=== PATIENT | male | born 1925 | race Caucasian/White ===

== ENCOUNTER 2016-11-03 22:10 | Emergency (ER) | payer MEDICARE ==
[2016-11-03 23:04] VITALS: BP 116/62
--- NOTE | 2016-11-04 06:37 | ED ---
Donell Escalante SooYoung, scribed for Fred Dickens MD on 11/03/16 at 2326 . 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 Pt says he accidentally pulled it out. It had been in place for about 3-4 months. Rates pain as 0/10. states the type of g tube is not usually in stock. - History of Current Complaint Chief Complaint: EDAbdPain Time Seen by Provider: 11/03/16 23:17 Stated Complaint: PULLED TUBE OUT OF ABD Hx Obtained From: Patient, Family/Workers Compensation Legal Secretary - Onset/Duration: Started Hours Ago, Still Present Timing: Constant Pain Intensity: 0 - out of 10 - Allergy/Home Medications Allergies/Adverse Reactions: Allergies Allergy/AdvReac Type Severity Reaction Status Date / Time Codeine Allergy Unknown Verified 11/03/16 23:32 Reaction Details Tetanus Toxoid Allergy Unknown Verified 11/03/16 23:32 Reaction Details Home Medications: Home Medications Fludrocortisone Acetate TAB* 0.1 mg PEG TUBE DAILY 11/03/16 [History Confirmed 11/03/16] PMH/Surg Hx/FS Hx/Imm Hx Previously Healthy: No Endocrine/Hematology History: Reports: Hx Anticoagulant Therapy Denies: Hx Diabetes Cardiovascular History: Reports: Hx Hypertension, Other Cardiovascular Problems/ Disorders - implantable monitor to left chest Respiratory History: Reports: Other Respiratory Problems/Disorders - SOB with exertion GI History: Reports: Hx Gastroesophageal Reflux Disease, Hx Obstructive Bowel, Other GI Disorders - Som's esophagus History: Reports: Hx Benign Prostatic Hyperplasia - enlarged prostate, Other Problems/Disorders - Prostate issues/ slow stream, retention Denies: Hx Renal Disease Sensory History: Reports: Hx Contacts or Glasses, Hx Macular Degeneration - right eye Opthamlomology History: Reports: Hx Contacts or Glasses, Hx Macular Degeneration - right eye - Surgical History Surgery Procedure, Year, and Place: IMPLANTED ELECTRO TECH; THYROIDECTOMY Hx Anesthesia Reactions: No Infectious Disease History: No Infectious Disease History: Denies: Traveled Outside the US in Last 30 Days - Family History Known Family History: Positive: Cardiac Disease, Hypertension, Diabetes - Social History Occupation: Retired Lives: With Family Alcohol Use: None Hx Substance Use: No Substance Use Type: Reports: None Hx Tobacco Use: Yes Smoking Status (MU): Former Smoker Review of Systems Negative: Fever Negative: Cough All Other Systems Reviewed And Are Negative: Yes Physical Exam Triage Information Reviewed: Yes Vital Signs On Initial Exam: Initial Vitals Temp Pulse Resp BP Pulse Ox 97.3 F 92 18 116/60 97 11/03/16 22:11 11/03/16 22:11 11/03/16 22:11 11/03/16 22:11 11/03/16 22:11 Vital Signs Reviewed: Yes Appearance: Positive: Well-Appearing, No Pain Distress Skin: Positive: Warm Head/Face: Positive: Normal Head/Face Inspection Eyes: Positive: IDA ENT: Positive: Hearing grossly normal Neck: Positive: Supple Respiratory/Lung Sounds: Positive: Clear to Auscultation, Breath Sounds Present Cardiovascular: Positive: RRR Abdomen Description: Positive: Soft, Other: - well formed feeding tube site Bowel Sounds: Positive: Present Musculoskeletal: Positive: Strength/ROM Intact - Bk Coma Scale Coma Scale Total: 15 Procedures - Procedure Summary Procedure Summary: feeding tube replaced with #16 fr feeding tube without complication. Placement confirmed by gastrograffinn xray Diagnostics - Vital Signs Vital Signs Temp Pulse Resp BP Pulse Ox 11/03/16 23:01 97.3 F 92 18 116/62 97 11/03/16 22:11 97.3 F 92 18 116/60 97 - Laboratory Lab Statement: Any lab studies that have been ordered have been reviewed, and results considered in the medical decision making process. - Radiology Catheter Patentcy Xray Interpretation: No Acute Changes Radiology Interpretation Completed By: ED Physician GIGU Course/Dx - Diagnoses Provider Diagnoses: g-tube replacement Discharge - Discharge Plan Condition: Improved Disposition: HOME Patient Education Materials: How to Use and Care for Your PEG Tube (ED) Referrals: Priya Aviles MD [Primary Care Provider] - The documentation as recorded by the Donell palacios SooYoung accurately reflects the service I personally performed and the decisions made by me, Fred Dickens MD.
--- NOTE | 2016-11-04 07:45 | RAD ---
Edited for charges. HISTORY: G-tube replacement COMPARISONS: CT dated September 11, 2016 VIEWS: Single supine view of the abdomen performed after administration of water -soluble contrast through a gastrostomy tube FINDINGS: A gastrostomy tube is noted. Contrast is noted within the lumen of the stomach. There is no appreciable extravasation. There is a nonspecific bowel gas pattern. IMPRESSION: CONTRAST IS NOTED WITH THE LUMEN OF THE STOMACH WITHOUT APPRECIABLE EXTRAVASATION. MTDD
--- NOTE | 2016-11-04 07:46 | RAD ---
HISTORY: Fall, right elbow pain COMPARISONS: None VIEWS: 5, Frontal, lateral, and oblique views of the right elbow FINDINGS: BONE DENSITY: Normal. BONES: There is no displaced fracture. JOINTS: There is no arthropathy. There is a small supracondylar fat pad suggestive of a small joint effusion. ALIGNMENT: There is no dislocation. SOFT TISSUES: Unremarkable. OTHER FINDINGS: None. IMPRESSION: NO ACUTE OSSEOUS INJURY. THERE IS A SMALL JOINT EFFUSION WHICH MAY INDICATE THE PRESENCE OF OCCULT FRACTURE GIVEN THE HISTORY OF TRAUMA..
== END 2016-11-04 01:04 | disposition home or self-care (01) ==
LOC: ED 22:10
DX: Z43.1 Encounter for attention to gastrostomy (principal); I10 Essential (primary) hypertension; K21.9 Gastro-esophageal reflux disease without esophagitis; N40.0 Benign prostatic hyperplasia without lower urinary tract symptoms; E89.0 Postprocedural hypothyroidism; Z95.818 Presence of other cardiac implants and grafts; Z79.01 Long term (current) use of anticoagulants; Z88.5 Allergy status to narcotic agent; Z88.7 Allergy status to serum and vaccine; Z87.891 Personal history of nicotine dependence
CPT/HCPCS: 36598; 49465; 99282

== ENCOUNTER 2016-11-05 16:50 | Emergency (ER) | payer MEDICARE ==
[2016-11-05 17:00] VITALS: BP 123/78
== END 2016-11-05 17:56 | disposition left against medical advice (07) ==
LOC: ED 16:50
DX: Z93.1 Gastrostomy status (principal); Z53.21 Procedure and treatment not carried out due to patient leaving prior to being seen by health care provider

== ENCOUNTER 2017-01-13 15:32 | Inpatient (IN) | payer MEDICARE ==
[2017-01-13 17:06] LABS: Hematocrit 39 % (42-52); Hemoglobin 13.1 g/dl (14.0-18.0); Mean Corpuscular HGB Conc 33 g/dl (31-36); Mean Corpuscular Hemoglobin 32 pg (27-31); Mean Corpuscular Volume 96 fL (80-94); Mean Platelet Volume 11 um3 (7.4-10.4); Red Blood Count 4.11 10^6/ul (4.0-5.4); Red Cell Distribution Width 14 % (10.5-15); White Blood Count 7.4 10^3/ul (3.5-10.8)
[2017-01-13 17:23] LABS: Albumin 3.4 g/dL (3.2-5.2); Calcium 8.9 mg/dL (8.6-10.3); EGFR African American 117.1 (>60); Globulin 2.9 g/dL (2-4); Potassium 4.4 mmol/L (3.5-5.0); Total Bilirubin 0.6 mg/dL (0.2-1.0); Total Protein 6.3 g/dL (6.4-8.9)
[2017-01-13 18:12] LABS: TSH (Thyroid Stimulating Horm) 1.28 mcIU/mL (0.34-5.60)
[2017-01-13] MEDS ORDERED: Diltiazem IV* 5 MG/ML 5 ML VIAL (for loading dose/IV Push) (25 MG) IV SLOW PU ONE (19:03)
[2017-01-13] MEDS ORDERED: Ondansetron INJ* 2 MG/ML VIAL IV PRN (19:03)
[2017-01-13] MEDS ORDERED: Acetaminophen TAB* 325 MG PO PRN (19:03)
[2017-01-13 19:09] LABS: Urine Bilirubin Negative (Negative); Urine Glucose Negative (Negative); Urine Nitrite Negative (Negative)
[2017-01-13] MEDS ORDERED: NS 0.9% 1000 ML* 1,000 ML IV SCH (19:15)
[2017-01-13] MEDS: Diltiazem TAB* 30 MG PEG TUBE SCH (19:32)
--- NOTE | 2017-01-13 19:59 | RAD ---
INDICATION: Vomiting. Atrial fibrillation. COMPARISON: September 04, 2015 TECHNIQUE: An AP portable view obtained at 1954 hours is submitted. FINDINGS: Bones/Soft Tissues: There are no acute bony findings. There is a cardiac event monitor. Cardiomediastinal: The cardiomediastinal silhouette is normal. Lungs: There are no infiltrates. Pleura: There are no pleural effusions. Other: None IMPRESSION: NO ACTIVE DISEASE.
[2017-01-13] MEDS ORDERED: Warfarin TAB(*) 5 MG PEG TUBE SCH ×2 (20:00→20:30)
--- NOTE | 2017-01-13 20:12 | RAD ---
INDICATION: Syncope COMPARISON: November 27, 2009 TECHNIQUE: Noncontrast axial source images were acquired from the skull base to the vertex. FINDINGS: Ventricles/sulci: There is advanced cortical atrophy with compensatory dilatation of the CSF spaces. Brain parenchyma: There is periventricular and subcortical white matter change compatible with chronic ischemia. Intracranial hemorrhage:None. Extra-axial spaces: There are no abnormal extra axial fluid collections or evidence of extra-axial mass. Calvarium: There is no calvarial fracture or other calvarial abnormality. Scalp: There is no evidence of scalp or extracalvarial soft tissue abnormality. Paranasal sinuses/mastoid: There is no fluid level in left maxillary antrum. There is mild bilateral ethmoid sinus mucosal thickening. The frontal air cells are hypoplastic. Other: None. IMPRESSION: Age-related atrophy with chronic microvascular ischemic change. Findings of acute and chronic sinusitis
[2017-01-13] MEDS: Dronedarone TAB* 400 MG PEG TUBE SCH (21:25)
--- NOTE | 2017-01-13 21:52 | HP ---
CC: Dr. Aviles; Dr. Bangura; Dr. Parra * HISTORY AND PHYSICAL: DATE OF ADMISSION: 01/13/17 PRIMARY CARE PROVIDER: Dr. Aviles. PRIMARY ADVANCE AGENT: Dr. Bangura in [place] and Dr. Parra. ATTENDING PHYSICIAN: Dr. Cruz * (DICTATED BY MONTSE EAST NP) CHIEF COMPLAINT: Presyncope. HISTORY OF PRESENT ILLNESS: Mr. Choudhury is an 89-year-old male patient, he has a history of hypertension, hyperlipidemia, GERD, BPH, hypothyroidism, paroxysmal atrial fibrillation, SVT, history of orthostasis, and also in addition to the aortic stenosis. He comes into the ER today stating that he was out golfing today. He was shooting and practicing, hitting some golf balls, he hit about 50. After that, he was walking back to the club house. He started feeling lightheaded, dizzy, felt like he was going to faint. He was able to lay down. His staff noted that he went down and he did not fall, he lowered himself on the ground. When they noticed that he was on the ground, so they came to check him and they turned him to a side because he started to vomit, he said that he did not choke after vomiting. He states that he did not have any chest pain or any shortness of breath. He said that he had been feeling well in the last few days, no chest pain, no palpitations, no feelings of shortness of breath or orthopnea. Nonetheless, there was concern because of the episode that had happened today and he was brought into the hospital for further evaluation. PAST MEDICAL HISTORY: Significant for: 1. Hypertension. 2. Hyperlipidemia. 3. GERD. 4. BPH. 5. Hypothyroid. 6. Paralysis of the vocal cords. 7. Aortic stenosis. 8. Paroxysmal AFib. 9. SVT. 10. Orthostasis. PAST SURGICAL HISTORY: He has had a history of an inguinal hernia repair, thyroidectomy. He has had a G-tube placement secondary to recurrent aspiration. HOME MEDICATIONS: According to the list that we obtained include: 1. Warfarin 5 mg by PEG tube Friday, Friday, Friday, Friday, , Friday. 2. Warfarin 2.5 mg PEG tube on Friday. 3. MiraLAX 17 g every 72 hours. 4. Synthroid 200 mcg Friday, Friday, Friday, Friday, , Friday. 5. Synthroid 100 mcg PEG tube Friday. 6. Proscar 5 mg PEG tube daily. 7. Lipitor 10 mg PEG tube daily. 8. Florinef 0.1 mg PEG tube daily. 9. Multaq 400 mg PEG tube b.i.d. 10. Nexium 20 mg PEG tube b.i.d. ALLERGIES TO MEDICATIONS: Include CODEINE and TETANUS. FAMILY HISTORY: Mother lived to the age of 89, of old age, according to him. Father had a history of [place]. SOCIAL HISTORY: Former smoker, quit 50 years ago. He does not drink alcohol. Surrogate decision maker is his daughter. ALLERGIES TO MEDICATIONS: Include CODEINE and TETANUS. REVIEW OF SYSTEMS: There is no documented fever. He denied having any significant weight change. There was no double vision. He denies having any ear discharge. There is no rhinorrhea, no sore throat, no thyroid enlargement. Denies having any chest pain. There is no orthopnea. No nocturnal dyspnea. There was no abdominal pain. There was one episode of nausea and vomiting. No dysuria, no frequency, no seizure. There was a presyncopal, but no syncope. No dysuria. Review of 14 systems completed, all others negative. PHYSICAL EXAMINATION GENERAL: At this time, Mr. Choudhury is an 89-year-old male patient. He is sitting in the ER stretcher. He does not appear to be in any acute distress. VITAL SIGNS: Blood pressure 113/67, pulse 112, respirations 18, O2 sat 97%, and temperature 98.6. HEENT: Head is atraumatic, normocephalic. Eyes: EOMs intact. Sclerae anicteric and not pale. Throat: Oral mucosa appears to be moist. No oropharyngeal erythema. NECK: Supple. LUNGS: Clear to auscultation bilaterally. No wheezing was heard. HEART: Sounds S1 and S2. Irregularly irregular rate and rhythm. No rubs or gallops. He did have grade 2 to 3 aortic murmur. ABDOMEN: Soft, flat, nontender. He had a G-tube that appeared to be no erythema surrounding it, no drainage was noted. EXTREMITIES: Pulses were 2+ throughout. He had 5/5 strength. NEUROLOGICAL: He is awake, alert, and oriented x3. No gross focal deficits. SKIN: Intact. DIAGNOSTIC STUDIES/LAB DATA: Revealed WBC of 7.4, RBC of 4.11, hemoglobin of 13.1, hematocrit of 39, platelet count 113. Sodium 137, potassium 4.4, chloride of 103, bicarb 31, BUN 28, creatinine of 0.80, glucose 120, lactic 1.5 , calcium 8.9, mag 2.0. Total bili 0.6, AST 60, ALT 65, alk phos 171. Troponin 0.0. His albumin was 3.4. TSH 1.28, urine was obtained, negative. He had an EKG today, appears to be atrial fibrillation under my review and again , there is a lot of artifact here, he does have irregular beats here and there and I do not appreciate any T-waves. Reviewed to the previous EKG, this is a new rhythm for him. Old medical records are reviewed. ASSESSMENT AND PLAN: Mr. Choudhury is an 89-year-old male patient coming into the ER today with complaints of presyncopal episode. On evaluation in the ED, it was noted that he appeared to have tachycardia that was irregular. To me, it appears to be atrial fibrillation. He will be admitted under observation status for: 1. Presyncope. At this point, I am concerned that may be he had a run of supraventricular tachycardia SVT or orthostasis that made him feel like he was going to faint. He has had a history of this in the past. He has a loop recorder. I would like to try to get this interrogated, but he follows Dr. Bangura for the loop recorder and he sees Dr. Parra as well who does not follow his loop recorder according to the patient. We are going to try to setup interrogation, he appears to be having atrial fibrillation right now, his heart rate is very irregular, I am going to give him a small dose of diltiazem and give him 30 p.o. afterwards to see if we can keep his rate controlled, this may make him feel better. We will hydrate the patient, check orthostatic blood pressures, continue the Florinef, and we will also get an echo as well. We will get a CT of the brain. 2. Hypertension. Continue meds as prescribed. 3. Hyperlipidemia. Continue his current medical regimen. 4. History of paroxysmal atrial fibrillation. Continue the Multaq. In addition to this, continue the warfarin, INR is pending. 5. Hypothyroidism. Continue his Synthroid. 6. Gastroesophageal reflux disease. Continue PPI therapy. 7. History of aspiration. Continue G-tube feeding. I do not think he aspirated today; but just in case, I am going to check a chest x-ray. 8. DVT prophylaxis. He is on warfarin. 9. Code status. Full code. 10. Fluid, electrolytes, and nutrition. We will continue his tube feeding diet , he takes one and a half cans at breakfast and lunch and one can at bedtime. The daughter is bringing in those cans. TIME SPENT: Time spent on the admission was approximately 60 minutes, greater than half the time was spent [id number] with the patient obtaining my history and physical; the other half the time was spent going over the plan of care with the patient and implementing the plan of care. I did discuss the plan of care with my attending, Dr. Cruz; he is in agreement. MONTSE EAST NP [id number]/[facility] #: [id number] QUINTIN
[2017-01-13] MEDS: ESOMEPRAZOLE MAGNESIUM 20 MG PEG TUBE SCH (22:09)
--- NOTE | 2017-01-13 22:35 | ED ---
Jaycee Escalante Thomas, scribed for Jacinto Carter MD on 01/13/17 at 1638 . Syncope/Near Syncope - HPI Summary HPI Summary: The pt is a 89 y/o M BIBA s/p a syncopal episode that occurred today at 15:00. The patient has a high-pitched voice and it is sometimes difficult to discern the words. He reports that he was golfing when he began to feel dizzy, weak, and tired which was followed by a syncopal episode. He denies a history of syncope. He vomited after this episode. In the ED, he complains of weakness and tiredness. Per his daughter, the patient has long-standing complaints of a spasming epiglottis, and he sometimes feels that he is "drowning in his secretions." This is what causes his high-pitched voice. However, he says that all of these symptoms have improved since he presented to [facility] ED. It is still difficult for him to sit up without assistance due to his weakness. He denies CP and SOB. He has a J-tube. PMHx: HTN. PSHx: implanted assembler wire mesh gate, thyroidectomy, J-tube. SHx: former smoker, no alcohol use, no illicit drug use. FHx: CAD, HTN, DM. - History Of Current Complaint Chief Complaint: EDWeakness Time Seen by Provider: 01/13/17 15:52 Hx Obtained From: Patient Onset/Duration: Lasting Hours - syncope was today, Still Present Timing: Constant Activity At Onset: Other - Playing golf Aggravating Factor(s): Nothing Alleviating Factor(s): Nothing Associated Signs And Symptoms: Dizzy, Lightheadedness, Vomiting, Other - POS: syncope, weakness, "drowning in secretions; NEG: CP, SOB Related History: Similar Episode/Dx as - This is his first syncopal episode - Allergies/Home Medications Allergies/Adverse Reactions: Allergies Allergy/AdvReac Type Severity Reaction Status Date / Time Codeine Allergy Unknown Verified 11/03/16 23:32 Reaction Details Tetanus Toxoid Allergy Unknown Verified 11/03/16 23:32 Reaction Details PMH/Surg Hx/FS Hx/Imm Hx Previously Healthy: No Endocrine/Hematology History: Reports: Hx Anticoagulant Therapy Denies: Hx Diabetes Cardiovascular History: Reports: Hx Hypertension, Other Cardiovascular Problems/ Disorders - implantable monitor to left chest Respiratory History: Reports: Other Respiratory Problems/Disorders - SOB with exertion GI History: Reports: Hx Gastroesophageal Reflux Disease, Hx Obstructive Bowel, Other GI Disorders - Som's esophagus History: Reports: Hx Benign Prostatic Hyperplasia - enlarged prostate, Other Problems/Disorders - Prostate issues/ slow stream, retention Denies: Hx Renal Disease Sensory History: Reports: Hx Contacts or Glasses, Hx Macular Degeneration - right eye Opthamlomology History: Reports: Hx Contacts or Glasses, Hx Macular Degeneration - right eye - Surgical History Surgery Procedure, Year, and Place: IMPLANTED AVIATION [place] MATE; THYROIDECTOMY; J- tube Hx Anesthesia Reactions: No Infectious Disease History: No Infectious Disease History: Denies: Traveled Outside the [place] in Last 30 Days - Family History Known Family History: Positive: Cardiac Disease, Hypertension, Diabetes - Social History Alcohol Use: None Hx Substance Use: No Substance Use Type: Reports: None Hx Tobacco Use: Yes Smoking Status (MU): Former Smoker Review of Systems Negative: Fever Positive: Other - POS: "drowning in secretions" Negative: Chest Pain Negative: Shortness Of Breath Positive: Vomiting - after syncopal episode Neurological: Other - POS: dizziness, weakness Positive: Weakness, Syncope All Other Systems Reviewed And Are Negative: Yes Physical Exam Triage Information Reviewed: Yes Vital Signs On Initial Exam: Initial Vitals Temp Pulse Resp BP Pulse Ox 98.6 F 107 16 131/59 95 01/13/17 15:44 01/13/17 15:44 01/13/17 15:44 01/13/17 15:44 01/13/17 15:44 Vital Signs Reviewed: Yes Appearance: Positive: Well-Appearing, No Pain Distress, Well-Nourished Skin: Positive: Warm, Skin Color Reflects Adequate Perfusion, Dry Head/Face: Positive: Normal Head/Face Inspection Eyes: Positive: Normal ENT: Positive: Normal ENT inspection Neck: Positive: Supple, Nontender Respiratory/Lung Sounds: Positive: Breath Sounds Present, Other - There are rhonchi in all lung hutson. Cardiovascular: Positive: RRR Abdomen Description: Positive: Nontender, Soft, Other: - There is a J-Tube. The site looks clean. Bowel Sounds: Positive: Present Musculoskeletal: Positive: Normal Neurological: Positive: Normal Psychiatric: Positive: Normal, Affect/Mood Appropriate - Given Coma Scale Coma Scale Total: 15 Diagnostics - Vital Signs Vital Signs Temp Pulse Resp BP Pulse Ox 01/13/17 16:34 94 01/13/17 15:50 14 01/13/17 15:49 131/59 01/13/17 15:44 98.6 F 107 16 131/59 95 - Laboratory Lab Results: Lab Results 01/13/17 01/13/17 01/13/17 Range/Units 16:56 16:56 16:56 WBC 7.4 (3.5-10.8) 10^3/ul RBC 4.11 (4.0-5.4) 10^6/ul Hgb 13.1 L (14.0-18.0) g/dl Hct 39 L (42-52) % MCV 96 H (80-94) fL MCH 32 H (27-31) pg MCHC 33 (31-36) g/dl RDW 14 (10.5-15) % Plt Count 113 L (150-450) 10^3/ul MPV 11 H (7.4-10.4) um3 Neut % (Auto) 82.9 (38-83) % Lymph % (Auto) 7.5 L (25-47) % [place] % (Auto) 7.7 (1-9) % Eos % (Auto) 1.1 (0-6) % Baso % (Auto) 0.8 (0-2) % Absolute Neuts (auto) 6.2 (1.5-7.7) 10^3/ul Absolute Lymphs (auto) 0.6 L (1.0-4.8) 10^3/ul Absolute Monos (auto) 0.6 (0-0.8) 10^3/ul Absolute Eos (auto) 0.1 (0-0.6) 10^3/ul Absolute Basos (auto) 0.1 (0-0.2) 10^3/ul Absolute Nucleated RBC 0 10^3/ul Nucleated RBC % 0 INR (Anticoag Therapy) (0.89-1.11) Sodium 137 (133-145) mmol/L Potassium 4.4 (3.5-5.0) mmol/L Chloride 103 (101-111) mmol/L Carbon Dioxide 31 (22-32) mmol/L Anion Gap 3 (2-11) mmol/L BUN 28 H (6-24) mg/dL Creatinine 0.80 (0.67-1.17) mg/dL Est GFR ( Amer) 117.1 (>60) Est GFR (Non-Af Amer) 91.0 (>60) BUN/Creatinine Ratio 35.0 H (8-20) Glucose 120 H (70-100) mg/dL Lactic Acid 1.5 (0.5-2.0) mmol/L Calcium 8.9 (8.6-10.3) mg/dL Magnesium 2.0 (1.9-2.7) mg/dL Total Bilirubin 0.60 (0.2-1.0) mg/dL AST 60 H (13-39) U/L ALT 65 H (7-52) U/L Alkaline Phosphatase 171 H (34-104) U/L Troponin I 0.00 (<0.04) ng/mL Total Protein 6.3 L (6.4-8.9) g/dL Albumin 3.4 (3.2-5.2) g/dL Globulin 2.9 (2-4) g/dL Albumin/Globulin Ratio 1.2 (1-3) TSH 1.28 (0.34-5.60) mcIU/mL Urine Color Urine Appearance Urine pH (5-9) Ur Specific [place] (1.010-1.030) Urine Protein (Negative) Urine Ketones (Negative) Urine Blood (Negative) Urine Nitrate (Negative) Urine Bilirubin (Negative) Urine Urobilinogen (Negative) Ur Leukocyte Esterase (Negative) Urine Glucose (Negative) Urine Ascorbic Acid (Negative) 01/13/17 01/13/17 Range/Units 16:56 18:52 WBC (3.5-10.8) 10^3/ul RBC (4.0-5.4) 10^6/ul Hgb (14.0-18.0) g/dl Hct (42-52) % MCV (80-94) fL MCH (27-31) pg MCHC (31-36) g/dl RDW (10.5-15) % Plt Count (150-450) 10^3/ul MPV (7.4-10.4) um3 Neut % (Auto) (38-83) % Lymph % (Auto) (25-47) % [place] % (Auto) (1-9) % Eos % (Auto) (0-6) % Baso % (Auto) (0-2) % Absolute Neuts (auto) (1.5-7.7) 10^3/ul Absolute Lymphs (auto) (1.0-4.8) 10^3/ul Absolute Monos (auto) (0-0.8) 10^3/ul Absolute Eos (auto) (0-0.6) 10^3/ul Absolute Basos (auto) (0-0.2) 10^3/ul Absolute Nucleated RBC 10^3/ul Nucleated RBC % INR (Anticoag Therapy) 3.41 H (0.89-1.11) Sodium (133-145) mmol/L Potassium (3.5-5.0) mmol/L Chloride (101-111) mmol/L Carbon Dioxide (22-32) mmol/L Anion Gap (2-11) mmol/L BUN (6-24) mg/dL Creatinine (0.67-1.17) mg/dL Est GFR ( Amer) (>60) Est GFR (Non-Af Amer) (>60) BUN/Creatinine Ratio (8-20) Glucose (70-100) mg/dL Lactic Acid (0.5-2.0) mmol/L Calcium (8.6-10.3) mg/dL Magnesium (1.9-2.7) mg/dL Total Bilirubin (0.2-1.0) mg/dL AST (13-39) U/L ALT (7-52) U/L Alkaline Phosphatase (34-104) U/L Troponin I (<0.04) ng/mL Total Protein (6.4-8.9) g/dL Albumin (3.2-5.2) g/dL Globulin (2-4) g/dL Albumin/Globulin Ratio (1-3) TSH (0.34-5.60) mcIU/mL Urine Color Yellow Urine Appearance Clear Urine pH 7.0 (5-9) Ur Specific [place] 1.015 (1.010-1.030) Urine Protein Negative (Negative) Urine Ketones Negative (Negative) Urine Blood Negative (Negative) Urine Nitrate Negative (Negative) Urine Bilirubin Negative (Negative) Urine Urobilinogen Negative (Negative) Ur Leukocyte Esterase Negative (Negative) Urine Glucose Negative (Negative) Urine Ascorbic Acid * H (Negative) Result Diagrams: 01/13/17 16:56 01/13/17 16:56 Lab Statement: Any lab studies that have been ordered have been reviewed, and results considered in the medical decision making process. Course/Dx Course Of Treatment: Mr. Choudhury had a reletively sudden syncopal episode while golfing today. He is stable here in the ED but will be admitted to the hospitalists for monitoring. - Diagnoses Provider Diagnoses: Syncope and collapse - Physician Notifications Discussed Care of Patient With: Tam Cruz Time Discussed With Above Provider: 18:23 Instructed by Provider To: Other - I consulted with Dr. Cruz, hospitalist, who admits the patient to [facility] [place]. Discharge - Discharge Plan Condition: Fair Disposition: ADMITTED TO [facility] Discharge Disposition Comment: By Dr. Cruz at 18:22 The documentation as recorded by the Jaycee palacios Thomas accurately reflects the service I personally performed and the decisions made by me, Jacinto Carter MD.
[2017-01-14] MEDS: Diltiazem TAB* 30 MG PEG TUBE SCH ×4 (00:38→17:38)
[2017-01-14 04:57] LABS: Hematocrit 37 % (42-52); Hemoglobin 12.4 g/dl (14.0-18.0); Mean Corpuscular HGB Conc 34 g/dl (31-36); Mean Corpuscular Hemoglobin 32 pg (27-31); Mean Corpuscular Volume 95 fL (80-94); Mean Platelet Volume 11 um3 (7.4-10.4); Red Blood Count 3.88 10^6/ul (4.0-5.4); Red Cell Distribution Width 13 % (10.5-15); White Blood Count 10.7 10^3/ul (3.5-10.8)
[2017-01-14 05:11] LABS: BUN/Creatinine Ratio 41.7 (8-20); Calcium 8.2 mg/dL (8.6-10.3); EGFR African American 163.1 (>60); EGFR Non-African American 126.9 (>60); Potassium 3.8 mmol/L (3.5-5.0)
[2017-01-14] MEDS: Levothyroxine TAB* 100 MCG TAB PEG TUBE SCH (05:52)
[2017-01-14] MEDS ORDERED: Influenza VAC *QUAD* 2017-18* 0.5 ML SYRINGE IM ONE (09:00)
[2017-01-14] MEDS: Atorvastatin* 10 MG TAB PEG TUBE SCH (09:34)
[2017-01-14] MEDS: Fludrocortisone Acetate TAB* 0.1 MG PO SCH (09:34)
[2017-01-14] MEDS: Finasteride TAB* 5 MG PO SCH (09:34)
[2017-01-14] MEDS: Dronedarone TAB* 400 MG PEG TUBE SCH ×2 (09:34→22:09)
[2017-01-14] MEDS: ESOMEPRAZOLE MAGNESIUM 20 MG PEG TUBE SCH ×2 (10:35→22:10)
--- NOTE | 2017-01-14 16:34 | ECHO ---
Patient: INDU MURRAY [facility] Rec#: [id number] : 1925 Date: 01/14/2017 Age: 89y Height: 170.18 cm / 67.0 in Weight: 68.95 kg / 152.0 lbs Sex: M BSA: 1.8 Room#: 434 Admit Date#: 01/13/2017 Type: Inpatient Referring: Thanh Mcknight NP Reading: Irvin Wisdom MD Professor Of Social Work: Mellisa Solitario RDCS CC: Priya Aviles MD Transthoracic Echocardiogram Indication: A-fib, pre-syncope. BP: 122/60 HR: 88 Rhythm: A-Fib Findings History: HTN, HLD, GERD, hypothyroidism, , PAF, SVT, PEG tube, 2-3/6 murmur. Technical Comments: The study is technically difficult. The study is technically limited due to poor acoustic windows. The study was technically limited due to the patient's inability to lay in the left lateral decubitus position. Patient was sitting in chair during this study. Completed at 1147. Left Ventricle: The left ventricle is not well visualized. The left ventricular chamber size is normal. Mild concentric left ventricular hypertrophy is observed. There is mildly decreased left ventricular systolic function. The estimated ejection fraction is 45-50%. The assessment of diastolic function is non-diagnostic. Left Atrium: The left atrium is mildly dilated. Right Ventricle: The right ventricle is slightly dilated. The right ventricular global systolic function is normal. Right Atrium: The right atrium is not well visualized. Aortic Valve: The aortic valve structure is not well visualized. There is aortic annular calcification. There is mild to moderate aortic regurgitation. Mitral Valve: Moderate mitral annular calcification present. Moderate mitral leaflet calcification is visualized. There is mild mitral regurgitation. There is no evidence of mitral stenosis. Tricuspid Valve: The tricuspid valve structure is not well visualized. Unable to estimate the right ventricular systolic pressure. There is no tricuspid stenosis. Pulmonic Valve: The pulmonic valve structure is not well visualized. There is trace to mild pulmonic regurgitation. There is no pulmonic stenosis. Pericardium: There is no significant pericardial effusion. A pericardial fat pad is visualized. Aorta: There is mild dilatation of the ascending aorta. There is no dilatation of the aortic arch. There is mild dilatation of the aortic root. Pulmonary Artery: The main pulmonary artery is not well visualized. Venous: The inferior vena cava is not visualized. Conclusions The study is technically difficult. The study is technically limited due to poor acoustic windows. The study was technically limited due to the patient's inability to lay in the left lateral decubitus position. Patient was sitting in chair during this study. Completed at 1147. The aortic annulus shows calcification extending into the leaflets and appears stenotic but suboptimal hemodynamic assessment noted. Similarly the mitral annulus is calcified extending into the leaflets with limited imaging doppler suggesting possible prolapse with mild regurgitation and incomplete assess for stenosis. There are not enough quality images to provide accurate statements regarding the cardiac structures. Would recommend evaluation for BRIONNA to obtain reliable images if clinically indicated. Measurements Name Value Normal Range RVIDd (AP) 2D 3.6 cm (0.9 - 2.6) RVDdMajor (2D) 4.5 cm (2.2 - 4.4) RAd ISD 4CH 4.46 cm (3.4 - 4.9) RA (A4C)W 3.67 cm (2.9 - 4.6) IVSd (2D) 1.1 cm (0.6 - 1) LVPWd (2D) 1.1 cm (0.6 - 1) LVIDd (2D) 4.04 cm (3.6 - 5.4) LVIDs (2D) 2.06 cm - LV FS (2D) 49 % (25 - 45) Aortic Annulus 2.2 cm (1.4 - 2.6) Ao root diameter (2D) 3.9 cm (2.1 - 3.5) Ascending Ao 3.8 cm (2.1 - 3.4) Aortic arch 2.43 cm (1.8 - 3.4) LA dimension (AP) 2D 3.3 cm (2.3 - 3.8) LAd ISD 4CH 6.45 cm (2.9 - 5.3) LA ISD 4CH W 4.36 cm (2.5 - 4.5) Name Value Normal Range MV E-wave Vmax 0.62 m/sec - MV deceleration time 335.2 msec - MV A-wave Vmax 1.22 m/sec - MV E:A ratio 0.5 ratio - LV septal e' Vmax 0.03 m/sec - LV lateral e' Vmax 0.08 m/sec - LV E:e' septal ratio 20.67 ratio - LV E:e' lateral ratio 7.75 ratio - Name Value Normal Range AV Vmax 1.9 m/sec - AV VTI 26.9 cm - AV peak gradient 14.67 mmHg - AV mean gradient 8.28 mmHg - LVOT diameter 2 cm - LVOT Vmax 1.01 m/sec - LVOT VTI 19.2 cm - LVOT peak gradient 4.1 mmHg - LVOT mean gradient 2.06 mmHg - DOI (VTI) 0.71 ratio - ADOLFO (continuity Vmax) 1.65 cm2 - ADOLFO (continuity VTI) 2.24 cm2 - AR PHT 380.6 msec - AR peak gradient 29.6 mmHg - CAREY Vmax 0.49 m/sec - Name Value Normal Range PV Vmax 0.54 m/sec - PV peak gradient 1.16 mmHg -
--- NOTE | 2017-01-14 17:04 | PN ---
Subjective Date of Service: 01/14/17 Interval History: Patient seen this morning and throughout the day. Reports he feels well. Denies any recurrent episodes of presyncopal symptoms. Ambulated with walker around the unit, HR elevated to 130s with exertion. Family History: Unchanged from Admission Social History: Unchanged from Admission Past Medical History: Unchanged from Admission Objective Active Medications: Acetaminophen (Tylenol Tab*) 650 mg PO Q4H PRN Atorvastatin Calcium (Lipitor*) 10 mg PEG TUBE DAILY DAVE Diltiazem HCl (Cardizem Tab*) 45 mg PEG TUBE Q6HR DAVE Dronedarone (Multaq Tab*) 400 mg PEG TUBE BID DAVE Finasteride (Proscar Tab*) 5 mg PO DAILY DAVE Fludrocortisone Acetate (Florinef Tab*) 0.1 mg PO DAILY DAVE Levothyroxine Sodium (Synthroid Tab*) 200 mcg PEG TUBE [id number]@0600 DAVE Levothyroxine Sodium (Synthroid Tab*) 100 mcg PEG TUBE Sa@0600 DAVE Pto:(Esomeprazole Magnesium [Nexium] 20 Mg) 20 mg PEG TUBE BID DAVE Ondansetron HCl (Zofran Inj*) 4 mg IV Q6H PRN Polyethylene Glycol/Electrolytes (Miralax*) 17 gm PEG TUBE Q72HR DAVE Vital Signs 01/13/17 01/13/17 01/13/17 19:00 19:16 19:30 Temperature Pulse Rate 123 121 135 Respiratory 19 13 14 Rate Blood Pressure 101/78 118/55 111/60 (mmHg) O2 Sat by Pulse 97 96 93 Oximetry 01/13/17 01/13/17 01/14/17 20:12 22:43 00:03 Temperature 99.1 F 98.7 F Pulse Rate 103 108 Respiratory 12 16 Rate Blood Pressure 108/60 96/48 116/64 (mmHg) O2 Sat by Pulse 97 89 Oximetry 01/14/17 01/14/17 01/14/17 00:04 00:08 03:54 Temperature 98.6 F 99.4 F Pulse Rate 111 100 Respiratory 20 18 Rate Blood Pressure 90/52 (mmHg) O2 Sat by Pulse 96 97 Oximetry 01/14/17 01/14/17 01/14/17 03:58 07:15 07:16 Temperature 98.3 F Pulse Rate 82 Respiratory 20 Rate Blood Pressure 122/60 98/58 88/39 (mmHg) O2 Sat by Pulse 94 Oximetry 01/14/17 01/14/17 01/14/17 10:32 11:38 14:29 Temperature 98.5 F Pulse Rate 100 Respiratory 20 Rate Blood Pressure 102/58 101/47 110/80 (mmHg) O2 Sat by Pulse 96 Oximetry Oxygen Devices in Use Now: None Appearance: Elderly, M, laying in chair in NAD Eyes: No Scleral Icterus Ears/Nose/Mouth/Throat: Mucous Membranes Moist Neck: NL Appearance and Movements; NL JVP Respiratory: Symmetrical Chest Expansion and Respiratory Effort, Clear to Auscultation Cardiovascular: - - IRIR, tachycardia Abdominal: NL Sounds; No Tenderness; No Distention Lymphatic: No Cervical Adenopathy Extremities: No Edema Skin: No Rash or Ulcers Neurological: Alert and Oriented x 3 Lines/Tubes/Other Access: Clean, Dry and Intact Percuteneous Feeding Tube Result Diagrams: 01/14/17 04:16 01/14/17 04:16 Assess/Plan/Problems-Billing Assessment: Presyncope 2/2 orthostatic hypotension and AFib with RVR in an 89 yo M with hx of pAF, HTN, HLD, GERD, vocal cord paralysis, hypothyroidism, BPH - Patient Problems (1) Pre-syncope Current Visit: Yes Comment: Positive orthostatics (hx of this) on exam, will give some additional IVF, continue Florinef. LINQ interrogated, awaiting results. No further episodes in the hospital. Echo poor quality. (2) Atrial fibrillation Current Visit: Yes Comment: Increase Diltiazem to 45 mg q6h, if better controlled will switch to long acting tomorrow. INR supertherapeutic, hold coumadin. Continue Multaq. (3) Hypothyroidism Current Visit: No Comment: Continue synthroid (4) Vocal cord paralysis Current Visit: Yes Comment: hx aspiration, PEG tube. Continue TF (5) DVT prophylaxis Current Visit: No Comment: Coumadin Status and Disposition: Inpatient for better rate control
[2017-01-14] MEDS ORDERED: NS 0.9% 1000 ML* 1,000 ML IV SCH (17:15)
[2017-01-15] MEDS: Diltiazem TAB* 30 MG PEG TUBE SCH ×2 (00:19→06:03)
[2017-01-15] MEDS: Levothyroxine TAB* 100 MCG TAB PEG TUBE SCH (06:02)
--- NOTE | 2017-01-15 09:32 | DCNOTE ---
Patient seen this morning. Feels well, has been up to the bathroom and back today with no issues. Ambulated around the unit yesterday with walker which he has at home. On exam, lungs CTA B/L no w/r/r, IRIR, normal rate, abd soft, NTND, BS+ LINQ device interrogated, shows episodes of AFib dating back to 08/2016, often with very rapid HRs HR better controlled with increased Cardizem. Will see if he can take extended release in PEG tube. Plan to discharge today with outpatient follow-up with Cardiology and PCP.
[2017-01-15] MEDS: Dronedarone TAB* 400 MG PEG TUBE SCH (09:43)
[2017-01-15] MEDS: Finasteride TAB* 5 MG PO SCH (09:43)
[2017-01-15] MEDS: Atorvastatin* 10 MG TAB PEG TUBE SCH (09:43)
[2017-01-15] MEDS: ESOMEPRAZOLE MAGNESIUM 20 MG PEG TUBE SCH (09:43)
[2017-01-15] MEDS: Fludrocortisone Acetate TAB* 0.1 MG PO SCH (09:43)
[2017-01-15 10:24] VITALS: BP 116/63
[2017-01-15] MEDS ORDERED: Diltiazem CD CAP* 180 MG PO SCH (11:00)
--- NOTE | 2017-01-16 08:37 | DS ---
CC: Dr. Aviles; Dr. Sebastian Parra, Cardiology * DISCHARGE SUMMARY: DATE OF ADMISSION: 01/13/17 DATE OF DISCHARGE: 01/15/17 PRIMARY CARE PHYSICIAN: Dr. Aviles. PRINCIPAL DISCHARGE DIAGNOSES: 1. Presyncope. 2. Nausea. 3. Vomiting. 4. Atrial fibrillation with rapid ventricular response. 5. Orthostatic hypotension. SECONDARY DIAGNOSES: 1. Hypertension. 2. Hyperlipidemia. 3. Gastroesophageal reflux disease. 4. Benign prostatic hyperplasia. 5. Hypothyroidism. 6. Paroxysmal atrial fibrillation. 7. Aortic stenosis. 8. Orthostatic hypotension. DISCHARGE MEDICATION REGIMEN: 1. Diltiazem 180 mg by PEG tube daily. 2. Nexium 20 mg per PEG tube 2 times daily. 3. Dronedarone 400 mg 2 times daily. 4. Florinef 0.1 mg PEG tube daily. 5. Atorvastatin 10 mg PEG tube daily. 6. Finasteride 5 mg PEG tube daily. 7. Synthroid 100 mcg every Friday, 200 mcg every other day of the week. 8. MiraLAX 17 g per PEG tube every 72 hours. 9. Warfarin 2.5 mg Friday, 5 mg every other day. STUDIES DONE DURING HOSPITALIZATION: CT of the brain, impression: Age-related atrophy with chronic microvascular ischemic change, findings of acute and chronic sinusitis. Transthoracic echocardiogram: Study is technically limited due to poor acoustic window, study was technically limited due to the patient's inability to lie in the left lateral decubitus position. The aortic annulus shows calcifications extending into the leaflets and appears stenotic with suboptimal hemodynamic assessment noted. Similarly, the mitral annulus was calcified extending into the leaflets with limited imaging Doppler suggesting possible prolapse with mild regurgitation and incomplete assessment for stenosis. There were none of quality images to provide accurate statements regarding the cardiac structures. We recommend evaluation for BRIONNA if clinically indicated. Chest x-ray, impression: No active disease. HISTORY OF PRESENT ILLNESS AND HOSPITAL SUMMARY: Please see the full history and physical by Thanh Mcknight NP, for full details. Briefly, Mr. Choudhury is an 89 -year- old man with past medical history as above, who presented to the hospital after he had a presyncopal episode when he was outside hitting golf balls at a golf course. His symptoms were preceded by lightheadedness and he was able to lie down on the green and he subsequently had an episode of emesis. He was brought to the hospital and his orthostatic vital signs were positive. This is a known diagnosis for the patient as he takes Florinef at home. The patient was also found to be in atrial fibrillation with rapid ventricular response, not entirely clear if this diagnosis had been established, but it seems like it was at least suspected in the past. The patient has a LINQ monitor. He was started on diltiazem in addition to his Multaq and warfarin. A low dose of 30 mg every 6 hours did not seem to be enough to completely control his heart rate, so he was kept an additional night with an increased dose and was given additional IV fluids with better control and his blood pressure seemed to tolerate this. The patient's INR was supratherapeutic during the hospitalization, but on the day of discharge, it was 2.5 and he was resumed on his home Coumadin. While the patient was hospitalized, we were able to interrogate his LINQ device and it seems that he has been having these episodes of atrial fibrillation since August, occasionally with heart rates becoming very rapid into the high 180s or 190s. The patient will be discharged on the long-acting diltiazem, which he is able to administer through the PEG tube. He should follow up with his PCP and with Dr. Parra, his patch machine operator, as an outpatient. He was instructed to try to stay hydrated as much as possible via his PEG tube, especially when he is going to be outside on a hot day. TIME SPENT: Total time spent on this discharge was 45 minutes. This is a summary of the hospitalization, please see the full medical record for further details. [id number]/CPS #: [id number] [facility]
[2017-01-16] MEDS ORDERED: Polyethylene Glycol 3350* 17 GM PACKET PEG TUBE SCH (09:00)
[2017-01-17] MEDS ORDERED: Warfarin TAB(*) 2.5 MG PEG TUBE SCH (17:00)
[2017-01-18] MEDS ORDERED: Levothyroxine TAB* 100 MCG TAB PEG TUBE SCH (06:00)
== END 2017-01-15 12:55 | disposition home or self-care (01) | DRG 309 ==
LOC: ED 15:32 → MEDTELE 18:54 → OBSVTOIN 01-14 17:10
PROVIDERS: ADMIT Hospitalist; ATTEND Hospitalist
DX: I48.0 Paroxysmal atrial fibrillation (principal); Z43.1 Encounter for attention to gastrostomy; J38.00 Paralysis of vocal cords and larynx, unspecified; I10 Essential (primary) hypertension; G31.9 Degenerative disease of nervous system, unspecified; I08.0 Rheumatic disorders of both mitral and aortic valves; J32.9 Chronic sinusitis, unspecified; I95.1 Orthostatic hypotension; E03.9 Hypothyroidism, unspecified; E78.5 Hyperlipidemia, unspecified; K21.9 Gastro-esophageal reflux disease without esophagitis; N40.0 Benign prostatic hyperplasia without lower urinary tract symptoms; Z79.01 Long term (current) use of anticoagulants; Z88.5 Allergy status to narcotic agent; Z88.7 Allergy status to serum and vaccine; Z87.891 Personal history of nicotine dependence
CPT/HCPCS: 36415; 70450; 71010; 80048; 80053; 81003; 83605; 83735; 84443; 84484; 85025; 85610; 90686; 93005; 93306; A9270-GY